=== PATIENT | female | born 2000 | race Caucasian/White ===

== ENCOUNTER 2023-11-24 08:41 | Inpatient (IN) | payer OTHER ==
[~2023-11-24] VITALS: Ht 157.5 cm; Wt 78.5 kg
[2023-11-25] MEDS ORDERED: CALCIUM CARBONATE 500 MG CHEW PO PRN
[2023-11-25] MEDS ORDERED: MAGNESIUM HYDROXIDE/AL HYDROX 30 ML CUP PO PRN
[2023-11-25] MEDS ORDERED: miSOPROStoL 25 MCG TAB PV SCH
[2023-11-25 08:17] VITALS: BP 124/85
[2023-11-25] MEDS ORDERED: LACTATED RINGER'S 1,000 ML IV SCH ×2 (12:00)
[2023-11-25] MEDS ORDERED: ondansetron HCL 4 MG/2 ML VIAL IV PRN (12:00)
[2023-11-25] MEDS ORDERED: OXYTOCIN/DEXTROSE 5% 20 UNITS/100 ML BAG IV SCH (12:00)
[2023-11-25 12:29] LABS: HEMATOCRIT 36.8 % (35.0-50.0); HEMOGLOBIN 12.4 g/dL (12.0-18.0); MCH 29.4 (27-36); MCHC 33.7 g/dl (30-36); MCV 87.2 fl (81-99); RBC 4.21 M/ul (4.3-5.7); RDW 13.9 (10.5-15.0)
[2023-11-25 12:53] LABS: AMPHETAMINES, URINE NEGATIVE (NEGATIVE); BARBITURATES, URINE NEGATIVE (NEGATIVE); BENZODIAZEPINE, URINE NEGATIVE (NEGATIVE); BUPRENORPHINE, URINE NEGATIVE (NEGATIVE); CANNABINOID, URINE NEGATIVE (NEGATIVE); COCAINE, URINE NEGATIVE (NEGATIVE); ECSTASY, URINE NEGATIVE (NEGATIVE); FENTANYL, URINE NEGATIVE (NEGATIVE); METHADONE, URINE NEGATIVE (NEGATIVE); OPIATES, URINE NEGATIVE (NEGATIVE); OXYCODONE, URINE NEGATIVE (NEGATIVE); PHENCYCLIDINE, URINE NEGATIVE (NEGATIVE)
[2023-11-25 13:49] LABS: ABO O; ANTIBODY SCREEN POSITIVE; RH NEGATIVE
[2023-11-25 13:51] LABS: ANTIBODY IDENTIFICATION ANTI-D
--- NOTE | 2023-11-25 16:56 | PR ---
[facility] [address] [facility] [place], [place] [address] Signed Progress Notes IP Datetime Report Generated by CPN: 11/25/2023 16:56 PROGRESS NOTES: [id number] Impression: Reassuring Heart Rate Procedures: Artificial ROM; Sterile Vag Exam Plan: Continue Present Management VITAL SIGNS: [id number] Vital Signs: Reviewed; Within Normal Limits EXAM: [id number] Dilatation: 1.5 Effacement: 80 Station: -2 Contractions: q 1 to 3 min MEMBRANES: [id number] Comments: Feeling contractions more and some cervical change. Will continue. FETUS A: [id number] FHR Baseline: 135 Variability: Moderate 6-25bpm Accelerations: 15X15 Decelerations: None FHR Category: Category I Presentation: Vertex Comments on Fetus A: no evidence of metabolic acidosis FETUS B: [id number] Signing Physician: Maribell Vargas MD Copies: ~ *Electronically Signed* 11/25/23 1656 MARIBELL VARGAS MD PATIENT NAME: ALCIRA RODRÍGUEZ PROGRESS NOTE DATE OF : 01 PHYSICIAN: MARIBELL VARGAS MD RPT #: [id number] REPORT IS CONFIDENTIAL AND NOT TO BE RELEASED WITHOUT AUTHORIZATION
[2023-11-25] MEDS ORDERED: LIDOCAINE HCL 2% 5 ML SDV ONE (19:20)
[2023-11-25] MEDS ORDERED: BUPIVACAINE HCL 0.25% 10 ML SDV INJ ONE (19:21)
[2023-11-25] MEDS ORDERED: ROPIVACAINE 0.2% 200 ML BAG ONE (19:21)
[2023-11-25] MEDS ORDERED: ePHEDrine sulfate 5 MG/ML SYRINGE IV PRN (20:15)
[2023-11-25] MEDS ORDERED: LACTATED RINGER'S 500 ML IV PRN (20:15)
[2023-11-25] MEDS ORDERED: ROPIVACAINE 0.2% 200 ML BAG EPIDURAL SCH ×2 (20:15)
[2023-11-25] MEDS ORDERED: dexmedeTOMIDine HCl 200 MCG/2 ML VIAL ONE (20:15)
[2023-11-25] MEDS ORDERED: LACTATED RINGER'S 2,000 ML IV ONE (20:15)
[2023-11-25] MEDS ORDERED: ePHEDrine KIT FOR FBC IV ONE (20:45)
--- NOTE | 2023-11-25 20:58 | PR ---
[facility] [address] [place], [place] [address] Signed Progress Notes IP Datetime Report Generated by LAITH: 11/25/2023 20:57 PROGRESS NOTES: [id number] Impression: Normal Progression of Labor; Non-reassuring Heart Rate Procedures: Artificial ROM; Sterile Vag Exam Other Procedures: IVF, IV ephedrine Plan: Continue Present Management VITAL SIGNS: [id number] Vital Signs: Reviewed; Within Normal Limits EXAM: [id number] Dilatation: 1.5 Effacement: 90 Station: -2 Contractions: q 1 to 3 min MEMBRANES: [id number] Comments: Comfortable after epidural but now w/ lates and variables. BP is lower than her usual and suspect hypotension contributing. Will increase fluids and given dose of ephedrine to see if this is helpful. Will continue changing positions as well. Will observe closely. FETUS A: [id number] FHR Baseline: 135 Variability: Minimal - >Undetectable to <=5bpm Accelerations: 15X15 Decelerations: Late; Variable FHR Category: Category II Presentation: Vertex Comments on Fetus A: no evidence of metabolic acidosis FETUS B: [id number] Signing Physician: Maribell Vargas MD Copies: ~ *Electronically Signed* 11/25/232056 MARIBELL VARGAS MD PATIENT NAME: ALCIRA RODRÍGUEZ PROGRESS NOTE DATE OF : 01 PHYSICIAN: MARIBELL VARGAS MD RPT #: [id number] REPORT IS CONFIDENTIAL AND NOT TO BE RELEASED WITHOUT AUTHORIZATION
--- NOTE | 2023-11-26 05:51 | PR ---
[facility] [address] [facility] [place] [address] Signed Progress Notes IP Datetime Report Generated by CPN: 11/26/2023 05:51 PROGRESS NOTES: [id number] Impression: Non-reassuring Heart Rate Procedures: Intrauterine Pressure Catheter; Scalp Electrode Other Procedures: IVF, IV ephedrine Plan: Continue Present Management Other Plans: poss amnioinfusion VITAL SIGNS: [id number] Vital Signs: Reviewed; Within Normal Limits EXAM: [id number] Dilatation: 4.5 Effacement: 95 Station: -2 Contractions: q 1 to 3 min MEMBRANES: [id number] Comments: Slow progresss. Previously very reassuring strip. IUPC and FSE placed. Suspect pit augment is needed but will need to verify reserve before starting. FETUS A: [id number] FHR Baseline: 135 Variability: Minimal - >Undetectable to <=5bpm Accelerations: 15X15 Decelerations: Prolonged FHR Category: Category II Presentation: Vertex Comments on Fetus A: no evidence of metabolic acidosis FETUS B: [id number] Signing Physician: Maribell Vargas MD Copies: ~ *Electronically Signed* 11/26/23 0551 MARIBELL VARGAS MD PATIENT NAME: ALCIRA RODRÍGUEZ PROGRESS NOTE DATE OF : 01 PHYSICIAN: MARIBELL VARGAS MD RPT #: [id number] REPORT IS CONFIDENTIAL AND NOT TO BE RELEASED WITHOUT AUTHORIZATION
[2023-11-26] MEDS ORDERED: OXYTOCIN/0.9 % SODIUM CHLORIDE 500 ML IV SCH ×2 (06:00→10:15)
[2023-11-26] MEDS ORDERED: BUPIVACAINE HCL 0.25% 30 ML SDV ONE (07:14)
[2023-11-26] MEDS ORDERED: TRANEXAMIC ACID IN NACL,ISO-OS 0 ML IV ONE (09:41)
[2023-11-26] MEDS ORDERED: MAGNESIUM HYDROXIDE 30 ML UDC PO PRN (10:15)
[2023-11-26] MEDS ORDERED: HYDROCORTISONE ACETATE 25 MG SUPP PR PRN (10:15)
[2023-11-26] MEDS ORDERED: BENZOCAINE 60 ML AEROSOL TOP PRN (10:15)
[2023-11-26] MEDS ORDERED: OXYCODONE HCL 5 MG TAB PO PRN (10:15)
[2023-11-26] MEDS ORDERED: OXYCODONE/APAP 5/325 TAB PO PRN (10:15)
[2023-11-26] MEDS ORDERED: WITCH HAZEL/GLYCERIN 1 EA PAD TOP PRN (10:15)
[2023-11-26] MEDS ORDERED: LIDOCAINE 2% VISCOUS 6 ML SYR TOP ONE ×2 (10:15)
[2023-11-26] MEDS ORDERED: HYDROCODONE/ACETA 5/325 TAB PO PRN (10:15)
[2023-11-26] MEDS ORDERED: ACETAMINOPHEN 325 MG TAB PO PRN (10:15)
[2023-11-26] MEDS ORDERED: MAGNESIUM HYDROXIDE/AL HYDROX 30 ML CUP PO PRN (10:15)
[2023-11-26] MEDS ORDERED: CALCIUM CARBONATE 500 MG CHEW PO PRN (10:15)
[2023-11-26] MEDS ORDERED: IBUPROFEN 600 MG TAB PO PRN (10:15)
[2023-11-26] MEDS ORDERED: METHYLERGONOVINE MALEATE 0.2 MG/ML AMP IM ONE (10:30)
[2023-11-26] MEDS ORDERED: SENNOSIDES/DOCUSATE 1 EA TAB PO SCH (21:00)
[2023-11-27 05:37] LABS: HEMATOCRIT 26.5 % (35.0-50.0); HEMOGLOBIN 9.5 g/dL (12.0-18.0); MCH 31.2 (27-36); MCV 86.6 fl (81-99); RBC 3.06 M/ul (4.3-5.7); RDW 13.9 (10.5-15.0)
--- NOTE | 2023-11-27 07:09 | PR ---
[facility] [address] [place] [address] Signed PP Progress Notes Datetime Report Generated by CPN: 11/27/2023 07:09 SUBJECTIVE: [id number] Pain: Within Normal Limits Vital Signs: [id number] Vital Signs: Reviewed; Within Normal Limits Cardiovascular: Not Done Respiratory: Not Done Abdomen/Uterus: Abnormal Lochia: Normal Vulva/Perineum: Not Done Exam Comments: Fundus firm, NT @ U-1. H/H 9.5/26.5, WBC 18.4, plat 199k IMPRESSION/PLAN/PROCEDURES: [id number] Impression: Normal Progression; Difficulties Plan: Continue Present Management; Consult Progress Notes: Doing well other than little sleep and issues. Will continue at for now. Signing Physician: Maribell Vargas MD Copies: ~ *Electronically Signed* 11/27/23708 MARIBELL VARGAS MD PATIENT NAME: ALCIRA RODRÍGUEZ PROGRESS NOTE DATE OF : 01 PHYSICIAN: MARIBELL VARGAS MD RPT #: [id number] REPORT IS CONFIDENTIAL AND NOT TO BE RELEASED WITHOUT AUTHORIZATION
[2023-11-27] MEDS ORDERED: RHO(D) IMMUNE GLOBULIN 1,500 UNIT/2 ML ML IM ONE (12:45)
[2023-11-27 13:47] LABS: ABO O; RH NEGATIVE
[2023-11-27 13:48] LABS: FETAL HEMOGLOBIN SCREEN NEGATIVE; RHIG DOSE 1; RHIG STATUS CANDIDATE; RHIG VIAL 1 RG23O03-T
[2023-11-27 13:49] LABS: ANTIBODY SCREEN POSITIVE
--- NOTE | 2023-11-28 09:13 | PR ---
[facility] [address] [facility] [place], [place] [address] Signed PP Progress Notes Datetime Report Generated by CPN: 11/28/2023 09:13 SUBJECTIVE: [id number] Pain: Within Normal Limits Vital Signs: [id number] Vital Signs: Reviewed; Within Normal Limits Cardiovascular: Not Done Respiratory: Not Done Abdomen/Uterus: Abnormal Lochia: Normal Vulva/Perineum: Not Done Breasts: Not Done CVA Tenderness: Not Done Extremities: Normal Incision: Not Applicable Progress: Normal Exam Comments: Fundus firm, NT @ U-2. IMPRESSION/PLAN/PROCEDURES: [id number] Impression: Normal Progression Plan: Discharge Procedures: Rhogam Progress Notes: She is doing well though baby still having issues w/ and jaundice. Will discharge her but it is possible baby may need to stay or potentially need f/u tomorro.w. Signing Physician: Maribell Vargas MD Copies: ~ *Electronically Signed* 11/28/23912 MARIBELL VARGAS MD PATIENT NAME: MARCOSALCIRA ANNE PROGRESS NOTE DATE OF : 01 PHYSICIAN: MARIBELL VARGAS MD RPT #: [id number] REPORT IS CONFIDENTIAL AND NOT TO BE RELEASED WITHOUT AUTHORIZATION
== END 2023-11-28 17:00 | disposition home or self-care (01) | DRG 807 ==
LOC: FBC 11-25 06:37
PROVIDERS: Obstetrics & Gynecology; ADMIT Obstetrics & Gynecology; ATTEND Obstetrics & Gynecology
PROC: 10E0XZZ Delivery of Products of Conception, External Approach (ICD-10-PCS; principal; 2023-11-25)
PROC: 10907ZC Drainage of Amniotic Fluid, Therapeutic from Products of Conception, Via Natural or Artificial Opening (ICD-10-PCS; 2023-11-25)
PROC: 3E0R3BZ Introduction of Anesthetic Agent into Spinal Canal, Percutaneous Approach (ICD-10-PCS; 2023-11-25)
PROC: 00HU33Z Insertion of Infusion Device into Spinal Canal, Percutaneous Approach (ICD-10-PCS; 2023-11-25)
DX: O24.420 Gestational diabetes mellitus in childbirth, diet controlled (principal); Z37.0 Single live birth; Z3A.39 39 weeks gestation of pregnancy; Z88.1 Allergy status to other antibiotic agents; Z88.0 Allergy status to penicillin; Z79.899 Other long term (current) drug therapy; O77.0 Labor and delivery complicated by meconium in amniotic fluid
CPT/HCPCS: 01960; 36415; 80307; 83030; 85027; 86850; 86870; 86900; 86901; A9270; J2001; J2210; J2405; J2790; J2795

== ENCOUNTER 2023-12-11 23:06 | Observation (INO) | payer OTHER ==
[~2023-12-11] VITALS: Ht 160 cm; Wt 69.2 kg
[2023-12-11] MEDS ORDERED: ondansetron HCL 4 MG/2 ML VIAL IV ONE (23:30)
[2023-12-11] MEDS ORDERED: SODIUM CHLORIDE 0.9% 500 ML IV PRN (23:30)
[2023-12-11] MEDS ORDERED: MORPHINE SULFATE 4 MG/ML VIAL IV ONE (23:30)
[2023-12-11 23:58] LABS: BASOPHILS 1.2 % (0-2); EOSINOPHILS 2.4 % (0-6); HEMATOCRIT 37.2 % (35.0-50.0); HEMOGLOBIN 12.8 g/dL (12.0-18.0); LYMPHOCYTES 26.5 % (24-44); MCH 30.3 (27-36); MCHC 34.6 g/dl (30-36); MCV 87.5 fl (81-99); MONOCYTES 5.4 % (0-12); NEUTROPHILS 64.5 % (39-80); PLATELET COUNT 456 K/uL (140-440); RBC 4.24 M/ul (4.3-5.7)
[2023-12-12] VITALS (8 sets, daily range): BP systolic 109–134; BP diastolic 69–85
[2023-12-12 00:09] LABS: ALBUMIN 3.5 g/dL (3.4-5.0); ALBUMIN/GLOBULIN RATIO 0.88 (1.1-2.4); ANION GAP 16.3 (7-21); BILIRUBIN, TOTAL 0.3 ng/dL (0.2-1.0); BUN/CREATININE RATIO 16.48 (6.0-28.6); CALCIUM 8.8 mg/dL (8.5-10.1); CREATININE, SERUM 0.91 mg/dL (0.55-1.02); POTASSIUM 3.3 mmol/L (3.5-5.1); PROTEIN, TOTAL 7.5 g/dL (6.4-8.2)
[2023-12-12] MEDS ORDERED: MORPHINE SULFATE 4 MG/ML VIAL IV PRN (01:00)
[2023-12-12] MEDS ORDERED: ondansetron HCL 4 MG/2 ML VIAL IV PRN ×3 (01:00→12:00)
[2023-12-12] MEDS ORDERED: DEXTROSE 5% - LACTATED RINGERS 1,000 ML IV SCH ×2 (01:00→10:15)
[2023-12-12] MEDS ORDERED: ACETAMINOPHEN 325 MG TAB PO PRN ×2 (01:00→10:15)
[2023-12-12] MEDS ORDERED: CEFTRIAXONE/SODIUM CHLORIDE 2 GM/100 ML PIGGYBACK IV SCH ×2 (01:15→10:11)
[2023-12-12] MEDS ORDERED: PRENATAL + DHA1 EAC1 PO (01:23)
--- NOTE | 2023-12-12 01:45 | NUR ---
REPORT FROM JESSEE EXTRACT MIXER, ALSO JESSEE RN SAID THAT HAS CALCULATED ALL MEDICATIONS ORDER TO BE SAFE FOR PATIENT TO BREAST FEED WITH.
--- NOTE | 2023-12-12 02:13 | NUR ---
PATIENT ADMITTED TO ROOM 116 INTAKE BY KNOT BUMPERJESSICA Urbina, SHE IS ALERT AND ORIENTED, SHE REPORTS PAIN IS WELL TOLERATED. PRE-OP TEACHING PROVIDED. HER AND BABY ARE IN ROOM, SHE IS PROVIDED HOSPITAL BREAST PUMP EQUIPMENT. ABX INFUSING ASSESSMENT COMPLETE ON ARRIVAL.
[2023-12-12 02:56] LABS: BILIRUBIN, URINE NEGATIVE (negative); BLOOD/HGB, URINE NEGATIVE (Negative); KETONE, URINE NEGATIVE (Negative); LEUK ESTERASE, URINE SMALL (negative); NITRITE, URINE NEGATIVE (negative); PH, URINE 6.5 (5-7)
[2023-12-12 03:16] LABS: BACTERIA, URINE 1+ /hpf (negative); CASTS, URINE NONE SEEN \\lpf; COLLECTION TYPE, URINE CLEAN CATCH; CRYSTALS, URINE NONE SEEN (0-1+); EPITHELIAL CELLS, URINE SQUAMOUS 1+ /lpf (0-1+); REFLEX CULTURE, URINE Yes (No)
[2023-12-12 05:32] LABS: BASOPHILS 0.7 % (0-2); EOSINOPHILS 0.8 % (0-6); HEMATOCRIT 34.9 % (35.0-50.0); LYMPHOCYTES 21.3 % (24-44); MCH 30.2 (27-36); MCHC 34.5 g/dl (30-36); MCV 87.7 fl (81-99); MONOCYTES 5.2 % (0-12); PLATELET COUNT 436 K/uL (140-440); RBC 3.98 M/ul (4.3-5.7); RDW 13.7 (10.5-15.0)
[2023-12-12 05:52] LABS: ALBUMIN 3.1 g/dL (3.4-5.0); ALBUMIN/GLOBULIN RATIO 0.82 (1.1-2.4); ANION GAP 12.3 (7-21); BILIRUBIN, TOTAL 0.2 ng/dL (0.2-1.0); BUN/CREATININE RATIO 13.75 (6.0-28.6); CALCIUM 8.5 mg/dL (8.5-10.1); CREATININE, SERUM 0.8 mg/dL (0.55-1.02); POTASSIUM 4.3 mmol/L (3.5-5.1); PROTEIN, TOTAL 6.9 g/dL (6.4-8.2)
--- NOTE | 2023-12-12 06:36 | NUR ---
ASSESSMENT COMPLETE THIS AM, PATIENT REPORTS NO NAUSEA, SHE REPORTS PAIN IS 4/10, SHE SAID, "I OK RIGHT NOW, IF IT GETS WORSE I WILL CALL." PATIENT IS CURRENTLY SITTING UP IN BED WITH BREAST MILK PUMP IN PLACE, BABY IS IN BASSINET, PATIENT SPOUSE IS SLEEPING ON COUCH. PATIENT HAS CALL LIGHT IN REACH, NO OTHER REQUESTS AT THIS TIME.
[2023-12-12] MEDS ORDERED: PANTOPRAZOLE SODIUM 40 MG/10 ML VIAL IV SCH (10:11)
[2023-12-12] MEDS ORDERED: ENOXAPARIN SODIUM 40 MG/0.4 ML SYR SUB-Q SCH (10:12)
[2023-12-12] MEDS ORDERED: PROCHLORPERAZINE EDISYLATE 10 MG/2 ML VIAL IV PRN ×2 (10:15→12:00)
[2023-12-12] MEDS ORDERED: HYDROmorphone HCL 1 MG/ML SYR IV PRN (10:15)
[2023-12-12] MEDS ORDERED: OXYCODONE HCL 5 MG TAB PO PRN (10:15)
[2023-12-12] MEDS ORDERED: ACETAMINOPHEN 500 MG TAB PO PRN (10:15)
[2023-12-12] MEDS ORDERED: ACETAMINOPHEN 650 MG SUPP PR PRN (10:15)
[2023-12-12] MEDS ORDERED: SODIUM CHLORIDE 0.9% 40 ML IV ONE (10:32)
[2023-12-12] MEDS ORDERED: fentaNYL citrate 100 MCG/2 ML VIAL ONE (10:32)
[2023-12-12] MEDS ORDERED: ACETAMINOPHEN 1,000 MG/100 ML VIAL ONE (10:32)
[2023-12-12] MEDS ORDERED: DEXAMETHASONE SOD PHOS 4 MG/ML VIAL ONE (10:32)
[2023-12-12] MEDS ORDERED: SUCCINYLCHOLINE IN 0.9% NACL 200 MG/10 ML SYRINGE ONE (10:32)
[2023-12-12] MEDS ORDERED: KETAMINE in NS 50 MG/5 ML SYR ONE (10:32)
[2023-12-12] MEDS ORDERED: ROCURONIUM BROMIDE 50 MG/5 ML SYR ONE (10:32)
[2023-12-12] MEDS ORDERED: dexmedeTOMIDine HCl 200 MCG/2 ML VIAL ONE (10:32)
[2023-12-12] MEDS ORDERED: MAGNESIUM SULFATE 1 GM/2 ML VIAL ONE (10:32)
[2023-12-12] MEDS ORDERED: LIDOCAINE HCL 2% 5 ML SDV ONE (10:32)
[2023-12-12] MEDS ORDERED: ondansetron HCL 4 MG/2 ML VIAL ONE (10:32)
[2023-12-12] MEDS ORDERED: propofoL 200 MG/20 ML VIAL ONE (10:32)
[2023-12-12] MEDS ORDERED: KETOROLAC TROMETHAMINE 30 MG/ML VIAL ONE (10:32)
[2023-12-12] MEDS ORDERED: iopamidoL 30 ML VIAL ONE (10:38)
[2023-12-12] MEDS ORDERED: LIDOCAINE 1% W/ EPI 1:200,000 30 ML SDV ONE (10:38)
[2023-12-12] MEDS ORDERED: SODIUM CHLORIDE 0.9% 60 ML IV ONE (10:38)
[2023-12-12] MEDS ORDERED: BUPIVACAINE HCL 0.25% 50 ML MDV ONE (10:38)
[2023-12-12] MEDS ORDERED: FAMOTIDINE20 MG PO (10:54)
[2023-12-12] MEDS ORDERED: SUGAMMADEX SODIUM 200 MG/2 ML ML ONE (11:44)
[2023-12-12] MEDS ORDERED: NALOXONE HCL 0.4 MG SYR IV PRN (12:00)
[2023-12-12] MEDS ORDERED: fentaNYL citrate 50 MCG/ML SDV IV PRN (12:00)
[2023-12-12] MEDS ORDERED: IBLOOD GLUCOSE TEST STRIP 1 EA TEST VI PRN (12:00)
[2023-12-12] MEDS ORDERED: fentaNYL citrate 50 MCG/ML SDV ONE (12:22)
--- NOTE | 2023-12-12 12:53 | NUR ---
12/12/23 1253 Michelle Truong 1205- PT ARRIVES TO PACU SEMI BUCIO POSITION. REACTIVE TO STIMULUS, LR INFUSING TO LQ IV. ABD SOFT, NON DISTENDED. DRESSINGS IN PLACE, CDI. ALL MONITORS IN PLACE. BREATHING EVEN AND NON LABORED. 1210- PT DENIES PAIN AND NAUSEA. PT SHIVERING, WARM BLANKETS PROVIDED. NO OTHER COMPLAINTS. 1225- PT STARTING TO C/O PAIN, 4-5/10. REQUESTING PAIN MEDICATION. WILL MEDICATE WITH FENTANYL PER ORDERS. 1240- PT REPORTS PAIN IMPROVED TO 2-3/10. NO SIGNS OF DISTRESS. DENIES NAUSEA. PT SALINE LOCKED. 1245- PT TAKEN TO MED/SURG VIA STRETCHER. PT SCOOTED SELF ACROSS FROM STERTCHER TO BED. PT DROWSY BUT WAKES EASILY AND ANSWERS QUESTIONS. SALINE LOCK IN PLACE. AND BABY AT BEDSIDE. REPORT TO LUCAS LOPEZ, CARE OF PT TURNED OVER AT THIS TIME.
--- NOTE | 2023-12-12 13:01 | NUR ---
Patient arrived back from surgery. Patient is drowsy, easily wakes to verbal stimuli and responds approp to questions. Vital signs stable, afebrile. Patient reports her pain is tolerable at this time. Abdominal lap sites x4, dressings are CDI. Patient oriented to room and call light. Patient's significant other and baby remain at bedside. Education provided to patient and significant other not to hold baby until it is safe and she is more alert to do so. Both pt and significant other verbalized their understanding of safety measures and plan of care. Told significant other not to leave room without alerting staff, if baby in room.
--- NOTE | 2023-12-12 13:57 | NUR ---
Patient up to restroom then back to bed. Vital signs remain stable, afebrile. Cont pulse ox intact, sp02 100% at this time. Patient requesting pain medication for increased pain. Oxycodone 10mg po admin with a snack. Patient reports pain level of 7/10 at this time. Pt denies nausea.
--- NOTE | 2023-12-12 14:44 | NUR ---
MED REC COMPLETE
--- NOTE | 2023-12-12 15:12 | NUR ---
Patient resting, easily wakes to verbal stimuli. Pain is tolerable at this time, pt reports 3/10. Patient's vitals remain stable, sp02 per cpox is 98% on room air. Patient denies needs at this time. Personal supplies and call light within reach.
[2023-12-12] MEDS ORDERED: SEVOFLURANE 250 ML BTL INH ONE (15:38)
--- NOTE | 2023-12-12 16:55 | NUR ---
Patient ambulated in hallway, tolerated well.
[2023-12-12] MEDS ORDERED: OXYCODONE HCL5 MG PO (16:58)
--- NOTE | 2023-12-12 17:49 | NUR ---
Patient is doing well, alert and oriented x4. Patient has met criteria for discharge. Significant other took RX to [facility] to have filled prior to pt discharge as they live out of town. Patient reports pain is tolerable at this time, no nausea. Patient eating well and voiding q/s. Lap sites x4 remains covered, dressings are CDI.
--- NOTE | 2023-12-13 07:56 | OR ---
[facility] [address] [place], [place] [address] Signed DATE OF OPERATION: 12/12/2023 SURGEON: Shana Chatman MD PREOPERATIVE DIAGNOSES: Acute cholecystitis, cholelithiasis and biliary colic. POSTOPERATIVE DIAGNOSIS: Acute cholecystitis, cholelithiasis and biliary colic. PROCEDURE: Laparoscopic cholecystectomy with intraoperative cholangiogram. ESTIMATED BLOOD LOSS: None. FINDINGS: Alcira had multiple small 2-4 mm gallstones. She had cholesterol throughout the gallbladder wall. The intraoperative cholangiogram was unremarkable. INDICATIONS: Alcira is a 23-year-old female, who just delivered her 1st child two weeks ago. This was a vaginal delivery without difficulties. She did not require an episiotomy. She has been doing well and breast-feeding the baby. She said fpc through the she was having right upper quadrant abdominal pain. The ultrasound done in [place], [place], showed some sludge. She had some continued episodes of right upper quadrant abdominal pain throughout the . 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 She had a repeat episode of significant pain yesterday and came to emergency room for evaluation. She was having nausea and vomiting. In the ER, she was tender in the right upper quadrant and they gave her some morphine. Her vital signs were fine. White count was not concern, but the AST, ALT, and alkaline phosphatase were all elevated, but not the bilirubin. I did not see a lipase or amylase. It looks like she has some bacteria and white blood cells in the urine. Her urine culture has been sent. However, she has received two doses of Rocephin, almost 12 hours apart. Beta-hCG was negative. On repeat ultrasound, she had multiple gallstones, but the gallbladder wall was not thickened. After the morphine, she had a negative sonographic Tyson sign. The common bile duct was unremarkable at 2.7 mm. She does have a little steatosis to the liver. I had been asked to admit her in the middle of night as a general surgeon on-call. I met with Alcira and her this morning. I brought a brochure from the office regarding the gallbladder. We looked at it carefully page by page. They understand the Electronically Signed By: SHANA CHATMAN MD 12/13/23 0756 PATIENT NAME: ALCIRA RODRÍGUEZ OPERATIVE REPORT DATE OF : 01 REPORT #: [id number] PHYSICIAN: SHANA CHATMAN MD PCP: EMILY KAY MD REPORT IS CONFIDENTIAL AND NOT TO BE RELEASED WITHOUT AUTHORIZATION [facility] [address] [place] [address] Signed location and function of the gallbladder. We discussed the expected intraop and postop course. There is risk of surgery including, but not limited to bleeding, infection, scarring, change in contour to the skin, damage to bowel, damage to main bile duct, incisional hernias and other unforeseen comorbidities. She and her had expressed understanding and wished to proceed. PROCEDURE IN DETAIL: Alcira was taken into our operating room and placed in the supine position under general endotracheal tube anesthesia. She was given her preoperative Rocephin and Flagyl. She was on subcutaneous Lovenox. SCDs were in place. She was prepped and draped in the usual sterile fashion. All trocars were placed in usual positions under direct visualization of camera without difficulty. We had taken pictures throughout for photodocumentation. The gallbladder was grasped and elevated in the right upper quadrant. We dissected out the triangle of Calot with our [place] dissector. We introduced our intraoperative cholangiocatheter into the cystic duct. The intraoperative cholangiogram was found to be unremarkable. We secured the cystic duct with our PDS Endoloop and two clips were placed across the cystic duct stump to christos its location. We also put a clip across the cystic artery and it was divided. The gallbladder was then removed from the gallbladder fossa with the help of the cautery and placed into an EndoCatch bag. We used our laparoscopic suturing device to pass 0-Vicryl suture on either side of the fascia at the subxiphoid trocar site. This was tied down to close the fascia primarily. After this, all the gas was allowed to escape and all the trocars were removed. We then closed the supraumbilical trocar site with interrupted in simple 0-Vicryl sutures. Local anesthetic was injected into all trocar sites. Each trocar site was irrigated and suctioned out until clear. We closed the skin and dermis of each trocar site with interrupted 3-0 Monocryl sutures. Dry gauze and tape was applied to all incisions. Alcira was awakened from anesthesia, extubated in the OR, and taken to recovery room in stable condition. Shana Chatman MD ALB/MODL /[id number] cc: Patient's Chart Electronically Signed By: SHANA CHATMAN MD 12/13/23 0756 PATIENT NAME: ALCIRA RODRÍGUEZ OPERATIVE REPORT DATE OF : 01 REPORT #: [id number] PHYSICIAN: SHANA CHATMAN MD PCP: EMILY KAY MD REPORT IS CONFIDENTIAL AND NOT TO BE RELEASED WITHOUT AUTHORIZATION [address] [place], [place] [address] Signed MD Maribell Prabhakar MD Carlotto A, Fisher Copies: SHANA CHATMAN MD, PATRICIA J MD FISHER, CARLOTTO MD ~ Electronically Signed By: SHANA CHATMAN MD 12/13/23 0756 PATIENT NAME: RODRÍGUEZALCIRA CHELSI OPERATIVE REPORT DATE OF : 01 REPORT #: [id number] PHYSICIAN: SHANA CHATMAN MD PCP: EMILY KAY MD REPORT IS CONFIDENTIAL AND NOT TO BE RELEASED WITHOUT AUTHORIZATION
--- NOTE | 2023-12-13 07:56 | CONS ---
[facility] [address] [place], [place] [address] Signed DATE OF CONSULTATION: CHIEF COMPLAINT: Right upper quadrant abdominal pain. HISTORY OF PRESENT ILLNESS: Alcira is a 23-year-old young lady who is now two weeks . She underwent an uncomplicated vaginal delivery. She did not require an episiotomy. She had some trouble with right upper quadrant abdominal pain during her . She had an ultrasound done over in [place], [place]. Apparently, they told her she had some sludge. She had some ongoing issues with right upper quadrant pain during her . She was able to get through the and has been doing well. However, yesterday she had another attack and it was unrelenting. She finally came to the emergency room. Her vital signs were fine. Her white count was normal, but her liver function tests were a little elevated. She also has some bacteria in the urine. Beta-HCG of course is negative. Her exam showed some tenderness in the right upper quadrant. Ultrasound showed now gallstones, but no gallbladder wall thickening. She had a positive Tyson sign, according to the patient that was improved with morphine. Her common bile duct was only 2.7 mm and she does have a little steatosis of her liver. I was called in middle of the night as a general surgeon on-call. She was admitted and started on Rocephin and Flagyl. She is here today with her and her son, Alo. This morning, she is doing well. PAST MEDICAL HISTORY: None. PAST SURGICAL HISTORY: [place] tooth extraction. SOCIAL HISTORY: Does not smoke or drink. She is to her , Asael and they have one son, now 2-week-old, born vaginally without issues. Her 's phone #[phone]. They prefer the [facility]. Dr. Dorene Rudolph is her primary care provider. Dr. Vargas had followed her during the , one of the other gynecologists had delivered the baby. FAMILY HISTORY: Her paternal grandfather had diabetes and now on hemodialysis. REVIEW OF SYSTEMS: She had 10 systems reviewed. She is very healthy young lady. ALLERGIES: Penicillin and clindamycin. Electronically Signed By: SHANA CHATMAN MD 12/13/23 0756 PATIENT NAME: ALCIRA RODRÍGUEZ CONSULTATION DATE OF : 01 REPORT #: [id number] PHYSICIAN: SHANA CHATMAN MD PCP: DORENE RUDOLPH MD REPORT IS CONFIDENTIAL AND NOT TO BE RELEASED WITHOUT AUTHORIZATION [facility] [address] [place], [place] [address] Signed MEDICATIONS: Multivitamin. PHYSICAL EXAMINATION: VITAL SIGNS: Her blood pressure is 127/76, heart rate 73, respiratory rate 16, temperature is 97.5. She is 100% on room air. She is 5 feet 3 inches tall, 69 kg with a body mass index of 27. GENERAL: Alcira is a 23-year-old young lady, sitting supine semi-recumbent in her hospital bed. Her , Asael is at the bedside. Our nurses with this as well. She did not look systemically ill or toxic. She is not jaundiced. LUNGS: Clear to auscultation bilaterally. HEART: Regular rate and rhythm without murmurs. ABDOMEN: Soft and flat. Little or no tenderness in the right upper quadrant. LABORATORY DATA: Her white blood count is 10.0, hemoglobin 12. Electrolytes unremarkable. Total bilirubin is normal at 0.2, but AST is up at 160, ALT 192, alkaline phosphatase is 227, albumin 3.1. Beta-hCG negative. Urinalysis did show some bacteria and white blood cells, and the urine culture was sent. RADIOGRAPHIC STUDIES: Ultrasound shows the gallstones. No gallbladder wall thickening. The Tyson sign was truncated by the morphine. The common bile duct is 2.7 mm. She does have some steatosis of the liver. ASSESSMENT/PLAN: Alcira is a 23-year-old young lady who presents with symptomatic cholelithiasis following the of her son two weeks ago. She has been admitted and started on IV fluids and made n.p.o. She is doing well with Rocephin and Flagyl on board. I brought with me a brochure with respect to the gallbladder. We looked at it carefully page by page. They understand the location of function of the gallbladder, we discussed laparoscopic versus open cholecystectomy. We also reviewed the expected postop and intraop course. They understand there is risk including, but not limited to bleeding, infection, scarring, change in contour of the skin, damage to bowel, damage to main bile duct, incisional hernias and possible need for ERCP and other unforeseen comorbidities. They had expressed understanding and wished to proceed. Shana Chatman MD Electronically Signed By: SHANA CHATMAN MD 12/13/23 0756 PATIENT NAME: ALCIRA RODRÍGUEZ CONSULTATION DATE OF : 01 REPORT #: [id number] PHYSICIAN: SHANA CHATMAN MD PCP: DORENE RUDOLPH MD REPORT IS CONFIDENTIAL AND NOT TO BE RELEASED WITHOUT AUTHORIZATION [facility] [address] [place] [address] Signed ALB/MODL /[id number] cc: MD Shana Hawkins MD Patient's Chart Copies: PIERRE VARGAS MD, ANDREW L MD ~ Electronically Signed By: SHANA CHATMAN MD 12/13/23 0756 PATIENT NAME: ALCIRA RODRÍGUEZ CONSULTATION DATE OF : 01 REPORT #: [id number] PHYSICIAN: SHANA CHATMAN MD PCP: DORENE RUDOLPH MD REPORT IS CONFIDENTIAL AND NOT TO BE RELEASED WITHOUT AUTHORIZATION
--- NOTE | 2023-12-17 12:42 | PATH ---
[facility] [address] [facility] [place], [place] [address] Signed SPECIMEN(S): A GALLBLADDER AND STONES SPECIMEN SOURCE: A. GALLBLADDER AND STONES CLINICAL HISTORY: Acute cholecystitis FINAL PATHOLOGIC DIAGNOSIS: Gallbladder, cholecystectomy: - Chronic calculous cholecystitis. - Mucosal cholesterolosis. JVR:ronan MICROSCOPIC EXAMINATION: Histologic sections of all submitted blocks are examined by light microscopy. These findings, together with the gross examination, support the pathologic diagnosis. GROSS DESCRIPTION: The specimen, labeled and designated "Malgorzata Rodríguez, gallbladder and stones," is received in formalin and consists of Specimen: Previously open gallbladder. Dimensions: 6.0 x 2.9 x 1.4 cm. Serosa: Carmine-dutton congested smooth and glistening. Cystic Duct: Unobstructed. Calculi: Multiple yellow-green bosselated calculi measuring 3.5 x 2.5 x 0.4 cm in aggregate. Mucosa: Dutton velvety with pale yellow flecking. Wall thickness: Edematous 0.3 cm. Lymph node: No pericystic lymph nodes are grossly identified. Additional: None. Crystalizer sections are submitted in (A1). ADALGISA (under the direct supervision of a pathologist) The Gross Description was prepared using a voice recognition system. The report was reviewed for accuracy; however, sound-alike word errors, addition and/or deletions may occur. If there is any question about this report, please contact Client Services. PERFORMING LABORATORY: Technical component was performed by [employer], Slim Matthews, PATIENT NAME: ALCIRA RODRÍGUEZ PATHOLOGY DATE OF : 01 REPORT #: [id number] PHYSICIAN: DANIE PATHOLOGY PCP: EMILY KAY MD REPORT IS CONFIDENTIAL AND NOT TO BE RELEASED WITHOUT AUTHORIZATION [facility] [address] [facility] [place], [place] [address] [place] [address] (CLIA# [id number]). Professional interpretation was performed by [facility] - [address] [place] [address] (CLIA#: [id number]). Diagnostician: Med Hayes MD Pathologist Electronically Signed 12/17/2023 Copies: ~ PATIENT NAME: ALCIRA RODRÍGUEZ PATHOLOGY DATE OF : 01 REPORT #: [id number] PHYSICIAN: DANIE PATHOLOGY PCP: EMILY KAY MD REPORT IS CONFIDENTIAL AND NOT TO BE RELEASED WITHOUT AUTHORIZATION
== END 2023-12-12 17:50 | disposition home or self-care (01) ==
LOC: ED 23:06 → MS 23:08
PROVIDERS: Family Medicine; ADMIT Colon & Rectal Surgery; ATTEND Colon & Rectal Surgery
PROC: 0FT44ZZ Resection of Gallbladder, Percutaneous Endoscopic Approach (ICD-10-PCS; principal; 2023-12-12 11:00)
DX: K80.12 Calculus of gallbladder with acute and chronic cholecystitis without obstruction (principal); Z88.0 Allergy status to penicillin; Z88.8 Allergy status to other drugs, medicaments and biological substances
CPT/HCPCS: 00790; 36415; 74300; 76705; 80053; 81001; 83690; 84703; 85025; 87088; 88304; 94762; 96361; 96365; 96372; 96375; 96376; 99285-25; A9270; G0378; J0131; J0330; J0696; J1100; J1650; J1885; J2270; J2405; J2470; J2704; J3010; J3475; J3490; J7040; J7121; Q9967